=== PATIENT | female | born 1980 | race Caucasian/White ===

== ENCOUNTER → 2018-11-09 | Outpatient (CLI) | payer BC ==
--- NOTE | 2018-11-09 09:41 | RAD ---
Two-view abdomen radiographs 11/09/2018 CLINICAL HISTORY: Abdominal pain. Supine and erect AP digital radiographs of the abdomen/pelvis were obtained. The lung bases are clear. An IUD overlies the expected location of the uterus within the mid pelvis. The abdominal bowel gas pattern is nonobstructive. There is no evidence of free air. No radiopaque calculus is seen. Mild S-shaped curvature of the thoracolumbar spine is noted. IMPRESSION: Nonobstructive bowel gas pattern. Electronically signed by: Zeus Kruse MD (11/09/2018 9:38 AM) [facility]
== END | disposition home or self-care (01) ==
LOC: PMG 08:58
PROVIDERS: ATTEND Physician Assistant
DX: R10.32 Left lower quadrant pain (principal); R10.31 Right lower quadrant pain; M41.85 Other forms of scoliosis, thoracolumbar region; Z97.5 Presence of (intrauterine) contraceptive device
CPT/HCPCS: 74019

== ENCOUNTER → 2019-10-14 | Outpatient (CLI) | payer BC, OTHER ==
--- NOTE | 2019-10-14 17:36 | RAD ---
DATE: 10/14/2019 3:06 PM EXAM: DIGITAL SCREEN BILAT W/CAD HISTORY: Screening COMPARISON: None. This is a baseline Bilateral full field craniocaudal and mediolateral oblique images were obtained using digital technique. This study was interpreted with the benefit of Computerized Aided Detection (CAD). FINDINGS: Breast Density: SCATTERED The breast parenchyma shows scattered fibroglandular densities. Breast parenchyma level B Single view asymmetry in the middle third right breast slightly lateral of midline approximately 5 cm from the nipple on the CC view could be artifact of overlapping fibroglandular tissue but needs additional imaging with rolled views and spot compression views with a full-field lateral view. Asymmetry in the far posterior slightly medial left breast on the CC view needs additional imaging with rolled views, full-field lateral view and possible targeted left breast ultrasound. IMPRESSION: Bilateral breast asymmetry, findings for which additional imaging is advised. BI-RADS CATEGORY: 0 INCOMPLETE: NEEDS ADDITIONAL IMAGING EVALUATION AND/OR PRIOR MAMMOGRAMS FOR COMPARISON. RECOMMENDED FOLLOW-UP: ADD ADDITIONAL IMAGING The patient will be contacted to return for additional imaging and a supplemental report will follow. PQRS compliance statement: Patient information was entered into a reminder system with a target due date for the next mammogram. Mammography is a sensitive method for finding small breast cancers, but it does not detect them all and is not a substitute for careful clinical examination. A negative mammogram does not negate a clinically suspicious finding and should not result in delay in biopsying a clinically suspicious abnormality. "Our facility is accredited by the [employer] Mammography Program."
== END | disposition home or self-care (01) ==
LOC: MAMMO 15:02
PROVIDERS: ATTEND Physician Assistant
DX: Z12.31 Encounter for screening mammogram for malignant neoplasm of breast (principal)
CPT/HCPCS: 77067

== ENCOUNTER → 2019-10-31 | Outpatient (CLI) | payer OTHER ==
--- NOTE | 2019-10-31 16:18 | RAD ---
DATE: 10/31/2019 1:45 PM EXAM: DIGITAL DIAGNOSTIC BILATERAL HISTORY: 39-year-old woman recalled from baseline screening for bilateral asymmetries COMPARISON: 10/14/2019 bilateral mammogram TECHNIQUE: Full-field bilateral cc rolled medial and rolled lateral views were obtained in addition to a right CC spot compression view and bilateral full-field ML views. This study was interpreted with the benefit of Computerized Aided Detection (CAD). FINDINGS: Breast Density: SCATTERED The breast parenchyma shows scattered fibroglandular densities. Breast parenchyma level B The questioned asymmetries bilaterally did not persist on additional mammographic imaging. No suspicious masses, microcalcifications or architectural distortion is present to suggest malignancy in either breast. The visualized axillae are unremarkable. IMPRESSION: No mammographic evidence of malignancy. BI-RADS CATEGORY: 1 NEGATIVE RECOMMENDED FOLLOW-UP: 12M 12 MONTH FOLLOW-UP Annual screening mammography is recommended, unless clinically indicated sooner based on symptoms or change in physical exam. PQRS compliance statement: Patient information was entered into a reminder system with a target due date for the next mammogram. Mammography is a sensitive method for finding small breast cancers, but it does not detect them all and is not a substitute for careful clinical examination. A negative mammogram does not negate a clinically suspicious finding and should not result in delay in biopsying a clinically suspicious abnormality. "Our facility is accredited by the [employer] Mammography Program."
== END | disposition home or self-care (01) ==
LOC: MAMMO 13:42
PROVIDERS: ATTEND Physician Assistant
DX: R92.2 Inconclusive mammogram (principal)
CPT/HCPCS: 77066

== ENCOUNTER → 2020-03-01 | Outpatient (CLI) | payer OTHER ==
--- NOTE | 2020-03-01 10:23 | RAD ---
PA and lateral chest. HISTORY: Cough, history of asthma PA and lateral views were taken of the chest. Lungs are free of infiltrates. Heart is normal in size. There is no pleural effusion. IMPRESSION: 1. No acute chest disease. Electronically signed by: Saulo Mcpherson MD (03/01/2020 8:59 AM) [id number]
== END ==
LOC: PMG 07:53
PROVIDERS: ATTEND Physician Assistant Medical
DX: R05 Cough (principal)
CPT/HCPCS: 71046

== ENCOUNTER 2020-03-29 13:28 | Emergency (ER) | payer OTHER ==
[~2020-03-29] VITALS: Ht 165.1 cm; Wt 75.0 kg
[2020-03-29] MEDS ORDERED: IV NORMAL SALINE 1,000ML 1,000 ML IV SCH (14:00)
[2020-03-29] MEDS ORDERED: ONDANSETRON PF 4 MG/2 ML VIAL. IVP ONE (14:00)
[2020-03-29] MEDS ORDERED: DICYCLOMINE HCL 10 MG CAPSULE PO ONE (14:00)
--- NOTE | 2020-03-29 14:04 | PHYS DOC ---
Past History Past Medical History: Anxiety, Asthma, Hypertension Past Surgical History: Cholecystectomy, Alcohol Use: None General Adult EDM: Chief Complaint: NAUSEA/VOMITING/DIARRHEA HPI: HPI: Patient is a 39-year-old female who presents with nausea, vomiting, diarrhea for 5 days. Patient reports pain is sharp and crampy. Patient states that she was exposed to a coworker that was positive for Covid on the . Patient was tested on Sunday for Covid and was negative. Patient denies fever, shortness of breath, cough. States that she felt worse today and was unable to keep any food down. Patient reports that she has been vomiting more today and worsening abdominal pain. Patient denies taking anything at home for pain. Review of Systems: Review of Systems: Constitutional: Denies fever or chills Eyes: Denies change in visual acuity HENT: Denies nasal congestion or sore throat Respiratory: Denies cough or shortness of breath Cardiovascular: Denies chest pain or edema GI: Reports abdominal pain, nausea, vomiting, diarrhea : Denies dysuria Musculoskeletal: Denies back pain or joint pain Integument: Denies rash Neurologic: Denies headache, focal weakness or sensory changes Endocrine: Denies polyuria or polydipsia Lymphatic: Denies swollen glands Psychiatric: Denies depression or anxiety Allergies: Allergies: Allergies Coded Allergies Type Severity Reaction Last Updated Verified droperidol Allergy Unknown seizures 03/29/20 Yes meperidine Allergy Unknown hives 03/29/20 Yes prochlorperazine Allergy Unknown seizures 03/29/20 Yes Physical Exam: PE: Constitutional: Well developed, well nourished, no acute distress, non-toxic appearance. [] HENT: Normocephalic, atraumatic, bilateral external ears normal, oropharynx moist, no oral exudates, nose normal. [] Eyes: PERRLA, EOMI, conjunctiva normal, no discharge. [] Neck: Normal range of motion, no tenderness, supple, no stridor. [] Cardiovascular:Heart rate sinus tachycardia, no murmur [] Lungs & Thorax: Bilateral breath sounds clear to auscultation [] Abdomen: Bowel sounds normal, soft, tenderness Skin: Warm, dry, no erythema, no rash. [] Back: No tenderness, no CVA tenderness. [] Extremities: No tenderness, no cyanosis, no clubbing, ROM intact, no edema. [] Neurologic: Alert and oriented X 3, normal motor function, normal sensory function, no focal deficits noted. [] Psychologic: Affect normal, judgement normal, mood normal. [] Current Patient Data: Vital Signs: Vital Signs Date Time Temp Pulse Resp B/P (MAP) Pulse Ox O2 Delivery O2 Flow Rate FiO2 03/29/20 13:40 97.4 105 18 131/78 (95) 98 Room Air EKG: EKG: Sinus tachycardia, heart rate 102 bpm, normal intervals. Normal axis. Otherwise normal EKG. [] Radiology/Procedures: Radiology/Procedures: []EXAM: AP View of the chest DATE: 03/29/2020 2:15 PM INDICATION: abdominal pain COMPARISON: 03/01/2020 FINDINGS: The heart is not enlarged. Mediastinal and hilar contours are normal. No focal parenchymal airspace opacity. No pleural effusion or pneumothorax. IMPRESSION: 1. No radiographic evidence for acute cardiopulmonary process. Electronically signed by: Nimesh Payton MD (03/29/2020 2:47 PM) [facility] of [facility] and pelvis without contrast 03/29/2020 CLINICAL HISTORY: Abdominal pain. TECHNIQUE: Unenhanced, contiguous, 3 mm axial sections were obtained through abdomen and pelvis. One or more of the following individualized dose reduction techniques were utilized for this study: 1. Automated exposure control. 2. Adjustment of the mA and/or kV according to patient size. 3. Use of iterative reconstruction technique. FINDINGS: Images through the lung bases demonstrate minimal dependent subsegmental atelectasis bilaterally. The liver, spleen, pancreas, and adrenal glands are within normal limits. No focal abnormality of the right kidney is seen. A 1 to 2 mm nonobstructing calculus is seen involving the midpole of the left kidney. No ureteral calculus is seen. There is no evidence of obstruction of either collecting system. The abdominal aorta tapers normally. Surgical clips are seen within the gallbladder fossa consistent with a cholecystectomy. No free fluid or free air is seen within the abdomen. There is no evidence of bowel obstruction. The appendix is well-visualized and is within normal limits. Images through the pelvis demonstrate an IUD within the expected location of the endometrial canal of the uterus. No adnexal mass is seen. No free fluid is noted. Minimal S-shaped curvature of the thoracolumbar spine is seen. IMPRESSION: No acute abnormality is seen. 1 to 2 mm nonobstructing left renal calculus. No ureteral calculus is seen. There is no evidence of obstruction of either collecting system. No acute abnormality is identified. Electronically signed by: Zeus Kruse MD (03/29/2020 2:42 PM) [id number] Heart Score: Risk Factors: Risk Factors: DM, Current or recent (<one month) smoker, HTN, HLP, family history of CAD, obesity. Risk Scores: Score 0 - 3: 2.5% MACE over next 6 weeks - Discharge Home Score 4 - 6: 20.3% MACE over next 6 weeks - Admit for Clinical Observation Score 7 - 10: 72.7% MACE over next 6 weeks - Early Invasive Strategies Course & Med Decision Making: Course & Med Decision Making Pertinent Labs and Imaging studies reviewed. (See chart for details) []Patient is a 39-year-old female who presents with nausea, vomiting, diarrhea for 5 days. Patient reports pain is sharp and crampy. Patient states that she was exposed to a coworker that was positive for Covid on the . Patient was tested on Sunday for Covid and was negative. Patient denies fever, shortness of breath, cough. States that she felt worse today and was unable to keep any food down. Patient reports that she has been vomiting more today and worsening abdominal pain. Patient denies taking anything at home for pain. Chest x-ray shows no radiographic evidence for acute cardiopulmonary process. CT abdomen shows no acute abnormality is seen. 1 to 2 mm nonobstructing left renal calculus. No ureteral calculus is seen. There is no evidence of obstruction of either collecting system. No acute abnormality is identified. Patient states that nausea has improved but still has some burning in her epigastric area. Will order GI cocktail and send home with Zofran for nausea. Patient is to follow-up with her primary care tomorrow if still vomiting. Rani Disclaimer: Rani Disclaimer: This electronic medical record was generated, in whole or in part, using a voice recognition dictation system. Departure Departure: Impression: Primary Impression: Gastroenteritis Disposition: 01 DC HOME SELF CARE/HOMELESS Condition: IMPROVED Referrals: DALILA DAVILA (PCP) Patient Instructions: Nausea and Vomiting, [id number] Additional Instructions: You were seen today in emergency room for nausea, vomiting, diarrhea. Your CT of your abdomen was negative and all of your labs were unremarkable. Going to send you home with Zofran for nausea. Please follow-up with your primary care physician tomorrow for further evaluation if symptoms are not improving. Please return to the emergency room with worsening symptoms or concerns. EMERGENCY DEPARTMENT GENERAL DISCHARGE INSTRUCTIONS Thank you for coming to [facility] (ED) today and trusting us with you care. We trust that you had a positivie experience in our Emergency Department. If you wish to speak to the department management, you may call the director at [phone]. YOUR FOLLOW UP INSTRUCTIONS ARE FOLLOWS: 1. Do you have a private Doctor? If you do not have a private doctor, please ask for a resource list of physicians or clinics that may be able to assist you with follow up care. 2. The Emergency Physician has interpreted your x-rays. The X-Ray specialist will also review them. If there is a change in the findings, you will be notified in 48 hours when at all possible. 3. A lab test or culture has been done, your results will be reviewed and you will be notified if you need a change in treatment. ADDITIONAL INSTRUCTIONS AND INFORMATION: 1. Your care today has been supervised by a physician who is specially trained in emergency care. Many problems require more than one evaluation for a complete diagnosis and treatment. We recommend that you schedule your follow up appointment as recommended to ensure complete treatment of you illness or injury. If you are unable to obtain follow up care and continue to have a problem, or if your condition worsens, we recommend that you return to the ED. 2. We are not able to safely determine your condition over the phone nor are we able to give sound medical advice over the phone. For these safety reasons, if you call for medical advice we will ask you to come to the ED for further evaluation. 3. If you have any questions regarding these discharge instructions please call the ED at [phone]. SAFETY INFORMATION: In the interest of safety, wellness, and injury prevention; we encourage you to wear your sealbelt, if you smoke; quite smoking, and we encourage family to use a prote ctive helmet for bicycling and other sporting events that present an increased risk for head injury. IF YOUR SYMPTOMS WORSEN OR NEW SYMPTOMS DEVELOP, OR YOU HAVE CONCERNS ABOUT YOUR CONDITION; OR IF YOUR CONDITION WORSENS WHILE YOU ARE WAITING FOR YOUR FOLLOW UP APPOINTMENT; EITHER CONTACT YOUR PRIMARY CARE DOCTOR, THE PHYSICIAN WHOSE NAME AND NUMBER YOU WERE GIVEN, OR RETURN TO THE ED IMMEDIATELY. MARANDA WALDEN APRN Mar 29, 2020 14:04
[2020-03-29] MEDS ORDERED: DICYCLOMINE HCL 20 MG TABLET PO ONE (14:15)
[2020-03-29 14:20] LABS: BASO % 1 % (0-3); EOS % 0 % (0-3); HEMATOCRIT 46.4 % (36.0-47.0); HEMOGLOBIN 15.4 g/dL (12.0-15.5); LYMPH # 1.8 x10^3/uL (1.0-4.8); LYMPH % 19 % (24-48); MEAN CORPUSCULAR HEMOGLOBIN 30 pg (25-35); MEAN CORPUSCULAR HGB CONC 33 g/dL (31-37); MEAN CORPUSCULAR VOLUME 89 fL (79-100); MONO # 0.7 x10^3/uL (0.0-1.1); MONO % 8 % (0-9); NEUT % 73 % (31-73); PLATELET COUNT 333 x10^3/uL (140-400); RED BLOOD COUNT 5.23 x10^6/uL (3.50-5.40); RED CELL DISTRIBUTION WIDTH 12.8 % (11.5-14.5); WHITE BLOOD COUNT 9.6 x10^3/uL (4.0-11.0)
--- NOTE | 2020-03-29 14:23 | EKG ---
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
[2020-03-29 14:31] LABS: U PREG PATIENT NEGATIVE (NEG)
[2020-03-29 14:38] LABS: BACTERIA,URINE FEW /HPF (0-FEW); BILIRUBIN,URINE NEG (NEG); CLARITY,URINE CLEAR; COLOR,URINE YELLOW; GLUCOSE,URINE NEG (NEG); NITRITE,URINE NEG (NEG); SQUAMOUS EPITHELIAL CELL,UR FEW /LPF; WBC,URINE OCC /HPF (0-4)
--- NOTE | 2020-03-29 14:44 | RAD ---
CT scan of the abdomen and pelvis without contrast 03/29/2020 CLINICAL HISTORY: Abdominal pain. TECHNIQUE: Unenhanced, contiguous, 3 mm axial sections were obtained through abdomen and pelvis. One or more of the following individualized dose reduction techniques were utilized for this study: 1. Automated exposure control. 2. Adjustment of the mA and/or kV according to patient size. 3. Use of iterative reconstruction technique. FINDINGS: Images through the lung bases demonstrate minimal dependent subsegmental atelectasis bilate rally. The liver, spleen, pancreas, and adrenal glands are within normal limits. No focal abnormality of the right kidney is seen. A 1 to 2 mm nonobstructing calculus is seen involvi ng the midpole of the left kidney. No ureteral calculus is seen. There is no evidence of obstruction of either collecting system. The abdominal aorta tapers normally. Surgical clips are seen within the gallbladder fossa consistent with a cholecystectomy. No free fluid or free air is seen within the abdomen. There is no evidence of bowel obstruction. The appendix is well-visualized and is within normal limits. Images through the pelvis demonstrate an IUD within the expected location of the endometrial canal of the uterus. No adnexal mass is seen. No free fluid is noted. Minimal S-shaped curvature of the thora columbar spine is seen. IMPRESSION: No acute abnormality is seen. 1 to 2 mm nonobstructing left renal calculus. No ureteral calculus is s een. There is no evidence of obstruction of either collecting system. No acute abnormality is identif ied. Electronically signed by: Zeus Kruse MD (03/29/2020 2:42 PM) [id number]
--- NOTE | 2020-03-29 14:50 | RAD ---
EXAM: AP View of the chest DATE: 03/29/2020 2:15 PM INDICATION: abdominal pain COMPARISON: 03/01/2020 FINDINGS: The heart is not enlarged. Mediastinal and hilar contours are normal. No focal parenchymal airspace opacity. No pleural effusion or pneumothorax. IMPRESSION: 1. No radiographic evidence for acute cardiopulmonary process. Electronically signed by: Nimesh Payton MD (03/29/2020 2:47 PM) [email or web address]
[2020-03-29 15:03] VITALS: BP 130/78
[2020-03-29 15:20] LABS: CALCIUM 9.5 mg/dL (8.5-10.1); GFR 61.4; POTASSIUM 3.8 mmol/L (3.5-5.1)
[2020-03-29] MEDS ORDERED: ONDA4TAB7 PO (15:30)
[2020-03-29] MEDS ORDERED: LIDO:MAALOX 1:1 20 ML SINGLE DOSE. PO ONE (15:30)
== END 2020-03-29 15:37 | disposition home or self-care (01) ==
LOC: ER 13:28
DX: K52.9 Noninfective gastroenteritis and colitis, unspecified (principal); F41.9 Anxiety disorder, unspecified; J45.909 Unspecified asthma, uncomplicated; I10 Essential (primary) hypertension; Z90.49 Acquired absence of other specified parts of digestive tract; Z98.890 Other specified postprocedural states; Z88.8 Allergy status to other drugs, medicaments and biological substances
CPT/HCPCS: 36415; 71045; 74176; 80048; 81001; 81025; 85025; 93005; 96361; 96374; 99285; J2405; J7030